=== PATIENT | female | born 1990 | race Hispanic/Latino ===

== ENCOUNTER 2019-03-08 14:19 | Emergency (ER) | payer OTHER ==
[~2019-03-08] VITALS: Ht 160 cm; Wt 52.3 kg
[2019-03-08] MEDS ORDERED: ORTH1TAB8 PO (14:25)
[2019-03-08] MEDS ORDERED: AZITHROMYCIN 250 MG TAB PO ONE (15:45)
[2019-03-08] MEDS ORDERED: cefTRIAXone SOD 250 MG VIAL (J0696) IM ONE (15:45)
[2019-03-08] MEDS ORDERED: LIDOCAINE 1% SDV 5 ML VIAL DILUENT ONE (15:45)
[2019-03-08] MEDS ORDERED: FLAG500T PO (16:09)
[2019-03-08 16:15] VITALS: BP 104/64
[2019-03-08 17:28] LABS: CHLAMYDIA DNA AMPLIFICATION NEGATIVE (NEGATIVE); GC DNA AMPLIFICATION NEGATIVE (NEGATIVE)
== END 2019-03-08 16:17 | disposition home or self-care (01) ==
LOC: M ED 14:19
DX: N76.0 Acute vaginitis (principal); Z20.2 Contact with and (suspected) exposure to infections with a predominantly sexual mode of transmission; Z79.3 Long term (current) use of hormonal contraceptives
CPT/HCPCS: 87210; 87661; 96372; 99283; J0696

== ENCOUNTER 2021-03-19 10:29 | Inpatient (IN) | payer OTHER ==
[~2021-03-19] VITALS: Ht 160 cm; Wt 63.0 kg
[2021-03-19] VITALS (13 sets, daily range): BP systolic 111–142; BP diastolic 55–78
[~2021-03-19 10:29] MED LIST: FLAG500T PO; ORTH1TAB8 PO
[2021-03-19] MEDS ORDERED: PRENTAB9 PO (10:54)
[2021-03-19] MEDS ORDERED: IRON65TA2 PO (10:54)
[2021-03-19] MEDS ORDERED: METHYLERGONOVINE MALEATE 0.2 MG/ML VIAL (J2210) IM PRN (11:20)
[2021-03-19] MEDS ORDERED: OXYTOCIN DRIP 30 UNITS in IV 1 EA IV PRN ×4 (11:20)
[2021-03-19] MEDS ORDERED: LIDOCAINE 1% MDV 20ML VIAL INFIL PRN (11:20)
--- NOTE | 2021-03-19 11:32 | IPNPDOC ---
Text Note Date of Service The patient was seen on 03/19/21. NOTE S:30yo tami [id number] @40+0, presents to triage with c/o contractions since 399, denies bleeding, LOF, states reasurring fm and nausea with contractions O:VSS RNST, FHR 140, +accel, -decel, mirna q1-5 min spontaneously Cervical exam 6/80/-1 posterior, soft A: active labor at term P: admit to labor and delivery VS,Fishbone, I+O VS, Fishbone, I+O Vital Signs Date Time Temp Pulse Resp B/P (MAP) Pulse Ox O2 Delivery O2 Flow Rate FiO2 03/19/21 11:01 97.6 66 18 122/78 (93) 97 BEBETO RODRIGUEZ CNM Mar 19, 2021 11:32
[2021-03-19 12:07] LABS: HEMATOCRIT 40.6 % (36.0-47.0); HEMOGLOBIN 14.2 g/dl (12.0-15.5); MEAN CORPUSCULAR HEMOGLOBIN 31.4 pg (27.0-33.0); MEAN CORPUSCULAR VOLUME 89.8 fl (80.0-96.0); PLATELET COUNT, AUTOMATED 189 10^3/uL (150-450); RED BLOOD COUNT 4.52 10^6/uL (4.00-5.40)
[2021-03-19] MEDS ORDERED: LACTATED RINGER'S 1000 ML IV STA (14:22)
[2021-03-19] MEDS ORDERED: ONDANSETRON 4MG/2ML VIAL IV ONE (14:25)
--- NOTE | 2021-03-19 14:28 | HPEPDOC ---
Obstetrical History & Physical General Date of Admission Mar 19, 2021 at 11:15 History of Present Illness Presents to labor and delivery with c/o contractions since 0400, denies bleeding, lof, sates reassuring FM. 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 history Past Medical History Medical History uti Surgical History: Bath teeth Family History Significant Family History: No pertinent family hx Social History Social history active duty Marital Status: Family situation: Spouse/partner home Psychosocial History: No pertinent psych hx * Smoker: non-smoker Alcohol: Denies Drugs: denies Abuse Violence Screening Have you been hit/kicked/slapp: No Have you been sexually assault: No Imunizations Tdap status: current Allergies Coded Allergies: No Known Drug Allergies (Verified Allergy, Unknown, 03/08/19) Medications Scheduled Ferrous Sulfate (Iron) 325 Mg Tablet, 1 TAB PO DAILY No.137/Iron/Folic Acd ( Vitamin Tablet) 1 Each Tablet, 1 TAB PO DAILY Physical Examination Physical Examination GENERAL: Alert and oriented times three. BREAST: . ABDOMEN: Gravid and non-tender to touch. FETUS: Is vertex (VTX) by sterile vaginal examination (SVE), fetus is vertex (VTX) by Damaso. HEART RATE: Regular rate and rhythm. LUNGS: Clear to auscultation (CTA). EXTREMITIES: No edema. No clonus. Deep tendon reflexes (DTRs) + 2. Vital Signs/I&O Vital Signs Date Time Temp Pulse Resp B/P (MAP) Pulse Ox O2 Delivery O2 Flow Rate FiO2 03/19/21 11:29 98.1 69 18 122/75 (91) 03/19/21 11:01 97 Laboratory Data 24H LABS Laboratory Tests 2 03/19/21 11:22: Serology Scanned Report Hepatitis B Testing 03/19/21 11:47: Nucleated Red Blood Cells % (auto) 0.0 03/19/21 12:45: Syphilis Serology NONREACTIVE CBC/BMP Laboratory Tests 03/19/21 11:47 Pertinent Laboratoy Data Blood Type: A+ RBC Antibody Screen: Negative HIV: Negative Hepatitis B: Negative Rapid Plasma Reagin: Nonreactive Rubella: Immune Varicella: Immune Chlamydia/Gonorrhea: Negative Group B Streptococcus: Negative Cystic Fibrosis: Negative Glucose Tolerance Test: 127 Anatomy Ultrasound Ultrasound Date: Oct 30, 2020 Placenta Location: Anterior Normal Anatomy: Yes Placenta Previa: No Vaginal Examination Dilation: 6 cm Effacement: 80% Station: -1 Cervical Consistency: Soft Cervical Position: Posterior Presentation: Cephalic presentation Assessment Heart Rate (FHR): 130 Variability: Moderate Accelerations: Positive Decelerations: None Tocometer Contractions: Yes Frequency: every 2-5 min. Strength: palpated as moderate, resting tone palp/soft Multi-drug resistant Organism: No history of MDRO Assessment/Plan Assessment Maria L is a 30-year-old (G)1 para (P)0 at 40+0 weeks by 9+4-week ultrasound. Presents to Labor and Delivery (L&D) in active labor. Plan Admit and orient. Outsole Paraffiner and consent. Diet: clear liquid. Group B Streptococcus (GBS) negative. Labs and intravenous (IV) per unit protocol. Counseled Labor, comfort measures, movement in labor. Saline lock, then Lactated Ringers : Bolus 1000 mL, prn. Anticipate [normal spontaneous delivery ()]. C-S as appropriate. BEBETO RODRIGUEZ CNM Mar 19, 2021 14:22
--- NOTE | 2021-03-19 17:14 | IPNPDOC ---
Obstetrical Progress Note Date of Service Mar 19, 2021 Subjective c/o pressure with contractions Objective Vital Signs Date Time Temp Pulse Resp B/P (MAP) Pulse Ox O2 Delivery O2 Flow Rate FiO2 03/19/21 16:05 99.7 74 18 129/69 (89) 03/19/21 11:01 97 Assessment Heart Rate (FHR): 140 Variability: Moderate Accelerations: Positive Decelerations: None Heart Rate Tracing: Category I Tocometer Contractions: Yes Frequency: every 2-5 min. Duration: greater than 60 seconds Strength: palpated as moderate, resting tone palp/soft Sterile Vaginal Examination Dilation: 9 cm Effacement (%): 100% Station: 0 Cervical Position: Middle Postion/Presentation: Cephalic presentation Assessment and Plan Age: 30 : 1 Term: 0 Pre-term: 0 Abortions: 0 Livin EGA at Admission: 40 Status: Reassuring Group B Streptococcus: Negative Anticipate: Vaginal Delivery Additional Comments AROM clear with exam. lr @125ml/hr, continuous efm x2, monitor for change in or maternal status, anticipate vaginal delivery BEBETO RODRIGUEZ CNM Mar 19, 2021 17:14
--- NOTE | 2021-03-19 17:57 | IPNPDOC ---
Obstetrical Progress Note Date of Service Mar 19, 2021 Subjective Pt c/o urge to push with contractions Objective Vital Signs Date Time Temp Pulse Resp B/P (MAP) Pulse Ox O2 Delivery O2 Flow Rate FiO2 03/19/21 16:05 99.7 74 18 129/69 (89) 03/19/21 11:01 97 Assessment Heart Rate (FHR): 130 Variability: Moderate Accelerations: Positive Decelerations: None Tocometer Contractions: Yes Frequency: every 2-5 min. Duration: greater than 60 seconds Strength: palpated as strong, resting tone palp/soft Sterile Vaginal Examination Cervical Consistency: Soft Postion/Presentation: Cephalic presentation Assessment and Plan Age: 30 : 1 Term: 0 Pre-term: 0 Abortions: 0 Livin Weeks & Days 40 Status: Reassuring Group B Streptococcus: Negative Anticipate: Vaginal Delivery Additional Comments Cervical exam AL/C/0 LR@125ml/hr, continuous efm x2, monitor for change in or maternal status, encourage maternal repositioning, evaluate for change as indicated, anticipate vaginal delivery BEBETO RODRIGUEZ CNM Mar 19, 2021 17:57
[2021-03-19] MEDS ORDERED: DOCUSATE SODIUM 100MG CAPSULE PO PRN (20:15)
[2021-03-19] MEDS ORDERED: RHOGAM 300 MCG (1500 IU) INJ (J2790) IM SCH (20:15)
[2021-03-19] MEDS ORDERED: MEASLES,MUMPS,RUBELLA VACCINE INJ (MMR-II) (90707) SC SCH (20:15)
[2021-03-19] MEDS ORDERED: ACETAMINOPHEN TAB 650MG DOSE (2X325MG) PO PRN (20:15)
[2021-03-19] MEDS ORDERED: METHYLERGONOVINE MALEATE 0.2 MG TAB PO PRN (20:15)
[2021-03-19] MEDS ORDERED: OXYTOCIN DRIP 30 UNITS in IV 1 EA IV SCH (20:15)
[2021-03-19] MEDS ORDERED: DIBUCAINE 1% OINTMENT 30GM TOP PRN (20:15)
--- NOTE | 2021-03-19 20:26 | DNPDOC ---
[facility] Delivery Note Delivery Note DATE OF DELIVERY: 19Mar2021 PREDELIVERY DIAGNOSIS: 40-0/7 weeks' gestation and labor. POST DELIVERY DIAGNOSIS: Delivered. PROCEDURE: Spontaneous vaginal delivery. NUCLEAR MEDICINE CHIEF TECHNOLOGIST: Renata Rodriguez CNM ANESTHESIA: none. ESTIMATED BLOOD LOSS: 200 mL. FINDINGS: vigorous female , Score 9/9, nuchal cord times 1. DELIVERY SUMMARY: Patient is a 30-year-old 1 now para 1 who was admitted to labor and delivery for active labor on 19Mar2021. Pt called out with c/o urge to push and was found to be C/C/+2. Gradual decent to was made with maternal pushing efforts. The head delivered in OA with restitution to FILI . A tight nuchal cord was noted after delivery of the head. The right anterior shoulder was delivered followed easily by the posterior shoulder. The was somersaulted towards the maternal right thigh and the cord reduced. The was placed immediately on the maternal abdomen where she was dried and stimulated for a vigorous cry. The cord was clamped x 2 after pulsation ceased and cut by the FOB. Pitocin infusion was initiated per protocol. The placenta delivered spontaneously in Villarreal presentation with minimal bleeding. The fundus firmed immediately. A second degree perineal laceration was noted. Lidocaine was used for local analgesia and the laceration was repaired using the Rousseau method with 3-0 [address]1. The cervix and vagina were swept with no clots located. Mother and baby entered the recovery phase in stable condition. RENATA RODRIGUEZ CNM Mar 19, 2021 20:26
--- NOTE | 2021-03-19 20:38 | IPNPDOC ---
Obstetrical Progress Note Date of Service Mar 19, 2021 Subjective To room for acceptance of care. No complaints. Patient has epidural. Objective Vital Signs Date Time Temp Pulse Resp B/P (MAP) Pulse Ox O2 Delivery O2 Flow Rate FiO2 03/19/21 18:51 114 18 121/55 (77) 03/19/21 17:36 99.5 03/19/21 11:01 97 Assessment Variability: Moderate Accelerations: Positive Decelerations: None Heart Rate Tracing: Category I Tocometer Contractions: Yes Frequency: regular Sterile Vaginal Examination Dilation: 5 cm Effacement (%): 90% Station: -2 Cervical Consistency: Soft Cervical Position: Middle Postion/Presentation: Cephalic presentation (by exam) Assessment and Plan Additional Comments CAT I NST reactive. SVE unchanged from 1600 still /-2. Baby can be felt in straight OP position. Will proceed with pitocin for induction and with position changes. COURTNEY FLOOD DO Mar 19, 2021 20:38
[2021-03-20] MEDS: IBUPROFEN 800 MG TAB PO PRN (02:24)
[2021-03-20 06:00] VITALS: BP 103/52
--- NOTE | 2021-03-20 07:01 | IPNPDOC ---
Progress Note Date of Service: Mar 20, 2021 Day#: 1 Progress Note Ms. Jeffrey scherer 30yo PPD1 s/p after spontaneous labor, Score 9/9. She has been ambulating, voiding spontaneously without issue and tolerating regular diet. Breast feeding without issue. Reports lochia is light. Patient is ambulating well. Reports some cramping with . Denies any pain. Voiding and stooling without difficulty. OBJECTIVE: VITAL SIGNS: Within normal limits, afebrile. Alert and oriented times three. No increased WOB Heart rate: non-tachy Abdomen: Fundus firm at U-2. Soft, NTTP. [Minimal] lochia per pt ASSESSMENT: Ms. Jeffrey scherer 30yo PPD1 s/p after spontaneous labor, Score 9/9. Vitals within normal limits, afebrile, hemodynamically stable with no evidence of infection. PLAN: 1. Discharge to home likely tomorrow. 2. Tylenol and Motrin for pain. 3. Encourage breast feeding and ambulation. 4. Desires minipill for contraception, script given 5. Routine PP visit in 6 weeks in clinic. 6. Discussed return precautions at length to include pelvic rest. VS, I&O, 24H, Fishbone Vital Signs/I&O Vital Signs Date Time Temp Pulse Resp B/P (MAP) Pulse Ox O2 Delivery O2 Flow Rate FiO2 03/20/21 06:00 97.7 99 20 103/52 (69) 97 Room Air I&O- Last 24 Hours up to 6 AM 03/20/21 06:00 Intake Total 2269 ml Output Total 550 ml Balance 1719 ml Laboratory Data 24H LABS Laboratory Tests 2 03/19/21 11:22: Serology Scanned Report Hepatitis B Testing 03/19/21 11:47: Nucleated Red Blood Cells % (auto) 0.0 03/19/21 12:45: Syphilis Serology NONREACTIVE CBC/BMP Laboratory Tests 03/19/21 11:47 COURTNEY FLOOD DO Mar 20, 2021 07:01
[2021-03-20] MEDS: PRENATAL VITAMINS CHEWABLE TABLET PO SCH (09:00)
[2021-03-21] MEDS: IBUPROFEN 800 MG TAB PO PRN (02:50)
[2021-03-21 05:56] VITALS: BP 90/50
[2021-03-21] MEDS ORDERED: ACET1TAB55 PO (07:12)
[2021-03-21] MEDS ORDERED: DIBU28OI2 TOP (07:12)
[2021-03-21] MEDS ORDERED: IBUP80TA PO (07:12)
--- NOTE | 2021-03-21 07:14 | DS.PDOC ---
Discharge Summary General Date of Admission Mar 19, 2021 at 11:15 Date of Discharge Mar 21, 2021 Discharge Summary HOSPITAL COURSE: Ms. Murphy is a 30 yo G1 now P1 who underwent an uncomplicated on 19Mar2021 after being admitted for active labor. Her course was unremarkable. On her day of discharge she met all appropriate discharge criteria. She was ambulating, voiding, tolerating a regular diet, and had minimal lochia. DISCHARGE MEDICATIONS: Please see below. ALLERGIES: Please see below. PHYSICAL EXAMINATION ON DISCHARGE: VITAL SIGNS: Please see below. GENERAL: AAOX3, NAD ABDOMINAL EXAMINATION: Fundus firm at U-2. No fundal tenderness EXTREMITIES: No edema PSYCHIATRIC EXAMINATION: Affect appropriate LABORATORY DATA: Please see below. ACTIVITY: Pelvic rest for 6 weeks DIET: Regular DISCHARGE PLAN: Discharge home DISPOSITION: Discharge home on 21Mar2021 DISCHARGE INSTRUCTIONS: 1. Nothing in the vagina for 6 weeks ITEMS TO FOLLOWUP ON ON OUTPATIENT: 1. Call to schedule a visit for 6 weeks post delivery DISCHARGE CONDITION: Stable. TIME SPENT ON DISCHARGE: Greater than 20 minutes. Isak Blackwell DO Vital Signs/I&Os Vital Signs Date Time Temp Pulse Resp B/P (MAP) Pulse Ox O2 Delivery O2 Flow Rate FiO2 03/21/21 05:56 97.7 70 14 90/50 (63) 98 Room Air Discharge Medications Scheduled Ferrous Sulfate (Iron) 325 Mg Tablet, 1 TAB PO DAILY, (Reported) No.137/Iron/Folic Acd ( Vitamin Tablet) 1 Each Tablet, 1 TAB PO DAILY, (Reported) Scheduled PRN Acetaminophen (Acetaminophen) 325 Mg Tablet, 650 MG PO Q4HP PRN for PAIN LEVEL 1-5 Dibucaine (Dibucaine) 28 Gm Oint...g., 0 DOSE TOP Q4H PRN for PERINEUM PAIN Ibuprofen (Ibuprofen) 800 Mg Tablet, 800 MG PO Q8HP PRN for PAIN LEVEL 6-10 Allergies Coded Allergies: No Known Drug Allergies (Verified Allergy, Unknown, 03/08/19) ISAK BLACKWELL DO Mar 21, 2021 07:14
[2021-03-21] MEDS: PRENATAL VITAMINS CHEWABLE TABLET PO SCH (09:49)
== END 2021-03-21 13:15 | disposition home or self-care (01) | DRG 807 ==
LOC: M LDO 10:29 → M LDI 11:15 → M OBS 22:21
PROVIDERS: ADMIT Registered Nurse; ATTEND Registered Nurse
PROC: 10E0XZZ Delivery of Products of Conception, External Approach (ICD-10-PCS; principal; 2021-03-19)
PROC: 0KQM0ZZ Repair Perineum Muscle, Open Approach (ICD-10-PCS; 2021-03-19)
DX: O69.1XX0 Labor and delivery complicated by cord around neck, with compression, not applicable or unspecified (principal); Z37.0 Single live birth; Z3A.40 40 weeks gestation of pregnancy; O70.1 Second degree perineal laceration during delivery